=== PATIENT | male | born 1960 | race Caucasian/White ===

== ENCOUNTER 2016-12-11 20:46 | Emergency (ER) | payer SELFPAY ==
[~2016-12-11] VITALS: Ht 162.6 cm; Wt 59.1 kg
[~2016-12-11 20:46] MED LIST: PREDNISONE20 MG PO; PROAIR HFA0.09 MG/AC IH; ZITHROMAX Z PA250 MG PO
[2016-12-11 20:48] VITALS: TEMP 98.6
[2016-12-11] MEDS ORDERED: PREDNISONE20 MG PO (20:54)
[2016-12-11] MEDS ORDERED: ZITHROMAX 250M250 MG PO (20:54)
[2016-12-11] MEDS ORDERED: ULTRAM 50MG TAB50 MG PO (20:55)
[2016-12-11 21:07] LABS: BASO # 0.1 (0.0-0.2); BASO % 1.3 % (0.0-2.0); EOS # 0.1 (0.0-0.7); EOS % 1.9 % (0-4.0); GRAN # 3.2 (1.4-6.5); GRAN % 47.9 % (42.2-75.2); HEMATOCRIT 45.1 % (42.0-52.0); HEMOGLOBIN 15.8 g/dl (13.5-18.0); LYMPH # 2.5 (1.2-3.4); LYMPH % 37.6 % (20.0-51.0); MEAN CELL VOLUME 95 fl (80.0-100.0); MEAN CORPUSCULAR HEMOGLOBIN 33 pg (27.0-31.0); MEAN CORPUSCULAR HGB CONC 35 g/dl (33.0-37.0); MEAN PLATELET VOLUME 9.5 fl (7.4-10.4); MONO # 0.8 (0.1-0.6); MONO % 11.2 % (1.7-9.3); PLATELET COUNT 199 K/mm3 (130-400); RED BLOOD COUNT 4.76 M/mm3 (4.20-5.60); WHITE BLOOD COUNT 6.7 K/mm3 (4.8-10.8)
[2016-12-11 21:19] LABS: ADJUSTED CALCIUM 9.1 mg/dL (8.4-10.2); ALANINE AMINOTRANSFERASE 61 U/L (21-72); ALBUMIN 5.1 gm/dL (3.5-5.0); ALKALINE PHOSPHATASE 88 U/L (50-136); ANION GAP 18 mmol/L (7-16); BILIRUBIN,TOTAL 0.9 mg/dL (0.0-1.0); BLOOD UREA NITROGEN 6 mg/dL (9-20); CARBON DIOXIDE 27 mmol/L (22-30); CHLORIDE 102 mmol/L (98-107); CREATININE, serum 0.53 mg/dL (0.66-1.25); GLUCOSE 92 mg/dL (74-106); LIPASE 163 U/L (23-300); POTASSIUM 3.6 mmol/L (3.4-5.0); SODIUM 147 mmol/L (137-145); TOTAL PROTEIN 8.9 gm/dL (6.4-8.2)
[2016-12-11 21:27] LABS: B-TYPE NATRIURETIC PEPTIDE 89 pg/mL (0-125)
[2016-12-11 21:31] LABS: TROPONIN-I 0.014 ng/mL (0.000-0.034)
[2016-12-11 22:36] VITALS: BP 118/82; PULSE 118
[2016-12-11 23:05] LABS: ERYTHROCYTE SEDIMENTATION RATE 2 mm/hr (0-30)
[2016-12-11 23:19] LABS: C-REACTIVE PROTEIN < 0.5 mg/dL (0.0-0.9)
== END 2016-12-11 22:40 | disposition left against medical advice (07) ==
LOC: COL.ER 20:46
PROVIDERS: Emergency Medicine
DX: J44.0 Chronic obstructive pulmonary disease with (acute) lower respiratory infection (principal); J20.9 Acute bronchitis, unspecified; R07.9 Chest pain, unspecified; F17.210 Nicotine dependence, cigarettes, uncomplicated; R09.02 Hypoxemia; Z53.21 Procedure and treatment not carried out due to patient leaving prior to being seen by health care provider; R00.0 Tachycardia, unspecified
CPT/HCPCS: J2270; J7512

== ENCOUNTER 2017-05-27 20:55 | Emergency (ER) | payer SELFPAY ==
[~2017-05-27] VITALS: Ht 162.6 cm; Wt 66.8 kg
[~2017-05-27 20:55] MED LIST changes: +ULTRAM 50MG TAB50 MG PO; +ZITHROMAX 250M250 MG PO
[2017-05-27 20:58] VITALS: TEMP 98.4
[2017-05-27] MEDS ORDERED: AMOXICILLIN 8751 TAB PO (22:43)
[2017-05-27 22:56] VITALS: BP 148/98; PULSE 108
== END 2017-05-27 22:57 | disposition home or self-care (01) ==
LOC: COL.ER 20:55
DX: S61.051A Open bite of right thumb without damage to nail, initial encounter (principal); S01.81XA Laceration without foreign body of other part of head, initial encounter; S20.219A Contusion of unspecified front wall of thorax, initial encounter; J44.9 Chronic obstructive pulmonary disease, unspecified; F17.210 Nicotine dependence, cigarettes, uncomplicated; F12.90 Cannabis use, unspecified, uncomplicated; F10.129 Alcohol abuse with intoxication, unspecified; Z23 Encounter for immunization; X99.2XXA Assault by sword or dagger, initial encounter

== ENCOUNTER 2017-07-19 17:12 | Emergency (ER) | payer SELFPAY ==
[~2017-07-19] VITALS: Ht 162.6 cm; Wt 66.8 kg
[~2017-07-19 17:12] MED LIST changes: +AMOXICILLIN 8751 TAB PO
[2017-07-19 17:14] VITALS: TEMP 98.6
[2017-07-19 17:38] LABS: BASO # 0.1 (0.0-0.2); BASO % 1.8 % (0.0-2.0); EOS # 0.2 (0.0-0.7); EOS % 3.4 % (0-4.0); GRAN # 2.9 (1.4-6.5); HEMATOCRIT 41.6 % (42.0-52.0); HEMOGLOBIN 14.6 g/dl (13.5-18.0); LYMPH # 2.6 (1.2-3.4); LYMPH % 38.5 % (20.0-51.0); MEAN CELL VOLUME 95 fl (80.0-100.0); MEAN CORPUSCULAR HEMOGLOBIN 33 pg (27.0-31.0); MEAN CORPUSCULAR HGB CONC 35 g/dl (33.0-37.0); MONO # 0.9 (0.1-0.6); MONO % 13.2 % (1.7-9.3); PLATELET COUNT 243 K/mm3 (130-400); REDCELL DISTRIBUTION WIDTH-CV 13.4 % (11.5-14.5); WHITE BLOOD COUNT 6.7 K/mm3 (4.8-10.8)
[2017-07-19 17:43] LABS: PROTHROMBIN TIME 11.1 SECONDS (9.7-12.8)
[2017-07-19 17:47] LABS: ADJUSTED CALCIUM 9.1 mg/dL (8.4-10.2); ALBUMIN 4.8 gm/dL (3.5-5.0); BILIRUBIN,TOTAL 0.6 mg/dL (0.0-1.0); CALCIUM 9.7 mg/dL (8.4-10.2); CREATININE, serum 0.52 mg/dL (0.66-1.25); MAGNESIUM 1.5 mg/dL (1.6-2.3); POTASSIUM 3.5 mmol/L (3.4-5.0); TOTAL PROTEIN 8.2 gm/dL (6.4-8.2)
[2017-07-19 17:57] VITALS: BP 133/88
[2017-07-19] MEDS ORDERED: CEPHALEXIN500 M1 PO (20:23)
[2017-07-19] MEDS ORDERED: NORCO 325 MG-51 TAB PO (20:23)
[2017-07-19 21:15] VITALS: PULSE 82
== END 2017-07-19 21:15 | disposition home or self-care (01) ==
LOC: COL.ER 17:12
PROVIDERS: Emergency Medicine
DX: S61.021A Laceration with foreign body of right thumb without damage to nail, initial encounter (principal); F10.129 Alcohol abuse with intoxication, unspecified; F17.210 Nicotine dependence, cigarettes, uncomplicated; J44.9 Chronic obstructive pulmonary disease, unspecified; Y90.8 Blood alcohol level of 240 mg/100 ml or more; V18.4XXA Pedal cycle driver injured in noncollision transport accident in traffic accident, initial encounter; Y93.I9 Activity, other involving external motion; Y92.410 Unspecified street and highway as the place of occurrence of the external cause
CPT/HCPCS: J0690; J3411; J7030